=== PATIENT | male | born 1955 | race Caucasian/White ===

== ENCOUNTER 2018-11-27 13:35 | Day surgery (SDC) | payer OTHER ==
[~2018-11-27] VITALS: Ht 170.2 cm; Wt 70.7 kg
[2018-11-27] VITALS (15 sets, daily range): BP systolic 94–116; BP diastolic 44–74; PULSE 56–68; RESP 12–16; Ht 170.2 cm; Wt 70.7 kg
[~2018-11-27 13:35] MED LIST: PHENYLephrine (100 MCG/ML) 10ML SYG ONE
[2018-11-27] MEDS ORDERED: LACTATED RINGER'S 1,000 ML IV SCH (14:30)
--- NOTE | 2018-11-27 15:44 | PREAC ---
Date/Time of Note Date/Time of Note DATE: 11/27/18 TIME: 15:41 Anesthesia Eval and Record Evaluation Time Pre-Procedure Interview DATE: 11/27/18 TIME: 15:41 Age 63 Sex male NPO: 8 hrs Preoperative diagnosis Right Index Finger Deep Infection, possible Foreign Body Planned procedure Right Index Finger wash out of deep Infection, removal of deep foreign body , Flexor Tendon Tenolysis Past Medical History Past Medical History: Includes Cardio: HTN Endo: Diabetes Infection(s): Hep C Surgery & Anesthesia Issues No known issue Meds Anticoagulation: No Beta Loida within 24 hr: No Reason Beta Loida not given: Pt. not on B-Loida No Active Prescriptions or Reported Meds Current Medications Lactated Ringer's 1,000 ml @ 30 mls/hr Q24H IV ; Start 11/27/18 at 14:30 Meds reviewed: Yes Allergies Coded Allergies: No Known Allergy (Unverified , 11/27/18) Allergies Reviewed: Yes Labs/Studies Labs Reviewed: Reviewed by anesthesiologist test: N/A Studies: ECG (NSR), CXR (No active Disease) Pre-procedure Exam Last vitals Vital Signs Date Temp Pulse Resp B/P (MAP) Pulse Ox O2 O2 Flow FiO2 Time Delivery Rate 11/27/18 98.2 56 16 116/57 97 14:20 (76) Airway: Adequate mouth opening, Adequate thyromental dist Mallampati: Mallampati II Teeth: Normal Lung: Normal Heart: Normal ASA Physical Status ASA physical status: 3 Emergency: None Planned Anesthetic General/MAC: LMA Planned Pain Management Parenteral pain med Pre-operative Attestations Prior to commencing anesthesia and surgery, the patient was re-evaluated, there was verification of: *The patient's identity *The results of appropriate recent lab work and preoperative vital signs *The above evaluation not changing prior to induction *Anesthetic plan, risk benefits, alternative and complications discussed with patient/family; questions answered; patient/family understands, accepts and wishes to proceed. JOSE MIGUEL COTTON MD Nov 27, 2018 15:44
[2018-11-27] MEDS ORDERED: LIDOCAINE 1% (MPF) 30 ML INJ ONE (15:46)
[2018-11-27] MEDS ORDERED: BUPIVACAINE 0.5% (SDV) 30 ML INJ ONE (15:46)
[2018-11-27] MEDS ORDERED: POLYMYXIN/BACITRACIN 1L IRRIG ONE (15:47)
[2018-11-27] MEDS ORDERED: FENTAnyl 50 MCG/ML VIAL ONE (15:48)
[2018-11-27] MEDS ORDERED: ONDANSETRON 4 MG INJ ONE (15:48)
[2018-11-27] MEDS ORDERED: PROPOFOL 20 ML ONE (15:48)
[2018-11-27] MEDS ORDERED: METOCLOPRAMIDE 10 MG INJ ONE (15:48)
[2018-11-27] MEDS ORDERED: MIDAZOLAM 1 MG/ML 2 ML INJ ONE (15:48)
[2018-11-27] MEDS ORDERED: CEFAZOLIN 1 GM INJ ONE (15:48)
[2018-11-27] MEDS ORDERED: KETOROLAC 30 MG INJ ONE (15:48)
[2018-11-27] MEDS ORDERED: FENTAnyl 50 MCG/ML VIAL IV PRN ×2 (16:00)
[2018-11-27] MEDS ORDERED: MEPERIDINE 25 MG INJ IV PRN (16:00)
[2018-11-27] MEDS ORDERED: ONDANSETRON 4 MG INJ IV PRN (16:00)
[2018-11-27] MEDS ORDERED: HYDROmorphONE 1 MG/5 ML IV SYRINGE IV PRN ×2 (16:00)
[2018-11-27] MEDS ORDERED: OXYCODONE/ACETAMINOPHEN (5/325) TAB PO PRN (16:00)
[2018-11-27] MEDS ORDERED: DIPHENHYDRAMINE 50 MG INJ IV PRN (16:00)
[2018-11-27] MEDS ORDERED: METOCLOPRAMIDE 10 MG INJ IV PRN (16:00)
[2018-11-27] MEDS ORDERED: LABETALOL HCL 20MG INJ IV PRN (16:00)
--- NOTE | 2018-11-27 16:30 | HPN ---
Date/Time of Note Date/Time of Note DATE: 11/27/18 TIME: 16:30 Interval H&P Admission Note Pt. seen H&P reviewed: No system changes BETO MCKEON Nov 27, 2018 16:30
[2018-11-27] MEDS ORDERED: VANCOMYCIN 1 GM (PMX) 250 ML ONE (16:50)
--- NOTE | 2018-11-27 17:29 | PAC ---
Date/Time of Note Date/Time of Note DATE: 11/27/18 TIME: 17:29 Post-Anesthesia Notes Post-Anesthesia Note Last documented vital signs Vital Signs Date Temp Pulse Resp B/P (MAP) Pulse Ox O2 O2 Flow FiO2 Time Delivery Rate 11/27/18 98.3 56 16 116/57 97 17:30 (76) Activity: WNL Respiratory function: WNL Cardiovascular function: WNL Mental status: Baseline Pain reasonably controlled: Yes Hydration appropriate: Yes Nausea/Vomiting absent: Yes JOSE MIGUEL COTTON MD Nov 27, 2018 17:29
[2018-11-27] MEDS ORDERED: DEXTROSE 50% 50 ML SYRINGE ONE (17:35)
[2018-11-27] MEDS ORDERED: DEXTROSE 50% 50 ML SYRINGE IV STA (17:39)
--- NOTE | 2018-11-27 18:41 | OPPN ---
Date/Time of Note Date/Time of Note DATE: 11/27/18 TIME: 18:40 Operative Report Preoperative Diagnosis Right index finger deep foreign body, deep infection, osteomyelitis, stiffness Postoperative Diagnosis Right index finger deep foreign body, deep infection, osteomyelitis, stiffness Operation/Procedure Performed Right index finger removal of deep foreign body, washout deep infection, opening bone cortex for osteomyelitis, GARO and flexor/extensor tenolysis Surgeon see signature line operations assistant none Anesthesia: general Estimated blood loss: 0 - 10 ml's Transfusion Required none Specimen cultures x2 Grafts/Implants none Complications none BETO MCKEON Nov 27, 2018 18:41
--- NOTE | 2018-11-28 05:50 | OPR ---
DATE OF OPERATION: 11/27/2018 SURGEON: Beto Carlson MD. ANESTHESIA: General. POSTOPERATIVE DIAGNOSES: 1. Right index finger deep foreign body. 2. Right index finger chronic deep infection. 3. Right index finger osteomyelitis at the metacarpal and proximal phalanx. 4. Right index finger stiffness with flexor tendon adhesions. POSTOPERATIVE DIAGNOSES: 1. Right index finger deep foreign body. 2. Right index finger chronic deep infection. 3. Right index finger osteomyelitis at the metacarpal and proximal phalanx. 4. Right index finger stiffness with flexor tendon adhesions. 5. Right index finger extensor tendon adhesions. PROCEDURES: 1. Removal of deep foreign body, right index finger. 2. Right index finger washout and excisional debridement of a deep infection. 3. Right index finger opening of bone cortex at the metacarpal and proximal phalanx for osteomyeliti s. 4. Right index finger manipulation under anesthesia metacarpophalangeal joint and proximal interphal angeal joint. 5. Right index finger extensor tendon tenolysis. 6. Right index finger flexor tendon tenolysis. OPERATIVE FINDINGS: Cement at the right index finger metacarpophalangeal joint with devitalized tiss ue and bone consistent with deep infection. Significant adhesions of the extensor tendon at the meta carpophalangeal joint, proximal phalanx and distal metacarpal as well as flexor tendons including the FDS and FDP tendons. INDICATION FOR PROCEDURE: A 63-year-old male with previous infection of the right index finger who u nderwent debridement and placement of antibiotic bone cement spacer. He presented to my office and w tg discussed the options. Given the retained foreign body as well as the evidence of infection and st iffness at the finger. We discussed the options and again, patient elected to proceed with surgical intervention, understanding risks and benefits. DESCRIPTION OF PROCEDURE: The patient was seen in the preoperative area and all further questions we re answered. He gave informed consent, understanding the risks and benefits. He was taken to operat román suite and placed in supine position. Sedation was administered. The patient was placed under ge neral anesthesia. Antibiotics were withheld to obtain accurate cultures. Right upper extremity was prepped with ChloraPrep stick and draped in usual sterile fashion. Esmarch bandage was used to exsan guinate the extremity and tourniquet inflated to 250 mmHg. A longitudinal incision over the right in dex finger proximal phalanx metacarpophalangeal joint and distal metacarpal was utilized with sharp d issection carried down through skin and subcutaneous tissue. There was scar tissue immediately deep to the dermis and there was no layer between the dermis and the underlying tendon. Careful dissectio n was carried out to elevate skin flaps radially and ulnarly above the extensor tendon. Extensor ten don was visualized and was more normal proximally. There were adhesions and significant scar tissue throughout. I first performed a tenolysis of the extensor tendon at the metacarpal neck and head as well as at the proximal phalanx. Care was taken to preserve the sagittal bands. After extensor tend on tenolysis, a dorsal capsulotomy was made through the extensor tendon longitudinally with a 15 blad e knife. The capsule was elevated radially and ulnarly and there was devitalized tissue consistent w ith infection. A rongeur was used to debride the devitalized subcutaneous tissue, tendon and capsule and this was sent for culture. The wound was copiously irrigated. Attention was turned to removal of deep foreign body. There was cement within the metacarpophalangeal joint as well as the proximal phalanx and metacarpal intramedullary canals. The cement was removed using an osteotome, mallet and rongeur. After all the foreign body was removed, the wound was again irrigated and attention was tur rupesh to opening of bone cortex for osteomyelitis. A curet was used to open the bone cortex and debrid e devitalized bone at the metacarpal head as well as the proximal phalanx. The intramedullary canals were reopened. Devitalized bone was excised using a rongeur as well as a curette. Wound was again irrigated. Attention was turned to the manipulation under anesthesia. A manipulation under anesthes ia was performed at the metacarpophalangeal joint as well as the proximal interphalangeal joint. Ran ge of motion at the MP joint prior to manipulation was from 10 to 40 degrees of flexion and at the PI PJ was from 20 to 60 degrees of flexion. After manipulation, the range of motion at the metacarpopha langeal joint was from +20 to 90 degrees of flexion at the PIP joint, was from 5 to 85 degrees of fle xion. Attention was then turned to the flexor tendon and a separate incision on the volar aspect of the right index finger metacarpal was utilized with sharp dissection carried down through skin and biswas bcutaneous tissue. Tenotomy scissor divided the soft tissues overlying the flexor sheath and the A1 anne-marie was visualized. The A1 anne-marie was incised and the flexor tendons were identified. A Ragnell retractor was used to bring the tendons out of the wound and a tenolysis was performed of the FDS and FDP tendons using traction as well as tenotomy scissors. The tendons glided nicely after tenolysis. The wounds were copiously irrigated. The dorsal capsular layer and the extensor tendon repaired us ing 3-0 Monocryl and skin reapproximated and sutured using a 5-0 nylon. Xeroform placed over the wou nds followed by sterile gauze, Webril and a bias bandage. Tourniquet deflated after 36 minutes and A ncef 2 grams IV as well as vancomycin 1 gram IV was administered. The patient was awakened from anes thesia and taken to postoperative suite in stable condition, tolerated the procedure well without com plication. SPECIMENS: Right index finger deep cultures. ESTIMATED BLOOD LOSS: 5 mL. COUNTS: Sponge, instrument, needle counts correct. TOURNIQUET TIME: 36 minutes. CONDITION ON DISCHARGE: Stable. The patient was given a non-refillable 5-day prescription for pain medication for surgery today. Dictated By: BETO HOWARD/NEYMAR Conf#: [id number] DID#: [id number]
== END 2018-11-27 18:50 | disposition home or self-care (01) ==
LOC: SDS 13:35
PROVIDERS: ATTEND Orthopaedic Surgery Hand Surgery
DX: T84.59XD Infection and inflammatory reaction due to other internal joint prosthesis, subsequent encounter (principal); M86.8X4 Other osteomyelitis, hand; Y79.3 Surgical instruments, materials and orthopedic devices (including sutures) associated with adverse incidents; Y83.8 Other surgical procedures as the cause of abnormal reaction of the patient, or of later complication, without mention of misadventure at the time of the procedure; M65.841 Other synovitis and tenosynovitis, right hand; E11.9 Type 2 diabetes mellitus without complications; I10 Essential (primary) hypertension; Z79.84 Long term (current) use of oral hypoglycemic drugs
CPT/HCPCS: 26034; 26440; 26445; 82962; 87070; 87075; 87102; 87116; J0690; J1200; J1885; J2250; J2370; J2405; J2765; J3010; J3370; Z7512; Z7610